=== PATIENT | male | born 1995 | race Hispanic/Latino ===

== ENCOUNTER 2022-06-11 14:02 | Emergency (ER) | payer OTHER ==
[~2022-06-11] VITALS: Ht 177.8 cm; Wt 106.6 kg
[2022-06-11] MEDS ORDERED: KETOROLAC 15MG/ML VIAL (15MG/ML) IM ONE (17:30)
[2022-06-11] MEDS ORDERED: IBUP-2070 PO (18:24)
[2022-06-11 18:45] VITALS: BP 138/72
== END 2022-06-11 18:56 | disposition home or self-care (01) ==
LOC: EDH 14:02
DX: G89.29 Other chronic pain (principal); M25.512 Pain in left shoulder; M54.2 Cervicalgia; M19.90 Unspecified osteoarthritis, unspecified site; Z90.49 Acquired absence of other specified parts of digestive tract
CPT/HCPCS: 99284; 73610; 72040; 96372; J1885

== ENCOUNTER → 2023-04-17 | Emergency (ER) | payer OTHER ==
[~2023-04-17] VITALS: Ht 177.8 cm; Wt 108.0 kg
[~2023-04-17] MED LIST: IBUP-2070 PO; IBUP-2077 PO
[2023-04-17 23:10] VITALS: BP 144/76; PULSE 85; RESP 16
[2023-04-17] MEDS: KETOROLAC 60 MG VIAL (30MG/ML) IM ONE (23:53)
== END ==
LOC: EDH 23:09
DX: M26.69 Other specified disorders of temporomandibular joint (principal); M19.90 Unspecified osteoarthritis, unspecified site; Z90.49 Acquired absence of other specified parts of digestive tract; Z98.890 Other specified postprocedural states
CPT/HCPCS: 99283; 70328; 96372; J1885

== ENCOUNTER 2023-07-30 10:56 | Emergency (ER) | payer OTHER ==
[~2023-07-30] VITALS: Ht 180.3 cm; Wt 99.8 kg
[2023-07-30 10:57] VITALS: BP 130/73; PULSE 56; RESP 20
[2023-07-30] MEDS: SOLU-MEDROL 125MG VIAL IVP ONE (11:24)
[2023-07-30] MEDS: CYCLOBENZAPRINE HCL 10 MG TABLET PO ONE (11:24)
[2023-07-30] MEDS: KETOROLAC 60 MG VIAL (30MG/ML) IM ONE (11:25)
[2023-07-30] MEDS ORDERED: CYCL-309 PO (12:00)
[2023-07-30] MEDS ORDERED: OMEP40CA21 PO (12:00)
[2023-07-30] MEDS ORDERED: METH4TAB3 PO (12:00)
== END 2023-07-30 12:34 | disposition home or self-care (01) ==
LOC: EDH 10:56
DX: G89.29 Other chronic pain (principal); M54.42 Lumbago with sciatica, left side; M19.90 Unspecified osteoarthritis, unspecified site; Z79.899 Other long term (current) drug therapy; Z90.49 Acquired absence of other specified parts of digestive tract; Z98.890 Other specified postprocedural states
CPT/HCPCS: 99284; 96374; 72100; 96372; J2919; J1885

== ENCOUNTER 2024-02-18 10:34 | Emergency (ER) | payer OTHER ==
[~2024-02-18] VITALS: Ht 177.8 cm; Wt 99.8 kg
[~2024-02-18 10:34] MED LIST changes: +CYCL-309 PO; +METH4TAB3 PO; +OMEP40CA21 PO
--- NOTE | 2024-02-18 10:57 | ERN ---
General Chief Complaint: Testicular Injury/Pain Stated Complaint: STI Time Seen by MD: 10:39 Time Seen by Midlevel: 10:39 Source: patient History of Present Illness Initial Comments Patient is a 28-year-old male with no significant past medical history presenting to the emergency department with pain and swelling to the right side of his testicle. Patient states his symptoms started yesterday after having sexual intercourse with his . He was a low concern for sexually transmitted disease at this time. Patient states his is approximately four months and has been checked for STIs. He was last checked for an STI approximately one month ago when he was negative. He denies any other symptoms at this time. Allergies: Coded Allergies: No Known Allergies (Unverified Allergy, Unknown, 06/11/22) Home Meds Active Scripts Doxycycline Monohydrate (Doxycycline Monohydrate) 100 Mg Capsule, 1 CAP PO BID for 10 Days, #20 CAP 0 Refills Prov:RAMON PEDERSON 02/18/24 Omeprazole (Omeprazole) 40 Mg Capsule.dr, 40 MG PO DAILY, #30 CAP Prov:TRISHA JONES NP 07/30/23 Methylprednisolone (Medrol) 4 Mg Tab.ds.pk, 4 MG PO AD, #1 UNIT Prov:TRISHA JONES NP 07/30/23 Cyclobenzaprine HCl (Cyclobenzaprine HCl) 10 Mg Tablet, 10 MG PO TID for 10 Days, #30 TAB Prov:TRISHA JONES NP 07/30/23 Ibuprofen (Ibuprofen 800 mg Tab) 800 Mg Tab, 800 MG PO Q8H PRN for fever or pain, #30 TAB 0 Refills Prov:TRISHA JONES NP 07/30/23 Ibuprofen (Ibuprofen 800 mg Tab) 800 Mg Tab, 800 MG PO Q8H PRN for fever or pain, #30 TAB 0 Refills Prov:TRISHA JONES [employer] 04/17/23 Ibuprofen (Ibuprofen) 600 Mg Tablet, 600 MG PO Q6H PRN for PAIN for 6 Days, #24 Prov:COREY HINKLE [employer] 06/11/22 Past Medical History Past Medical History: Arthritis, Other Medical History Other: CHRONIC NECK, SHOULDER, ANKLE PAIN Past Surgical History: Appendectomy ROS Dictation CONSTITUTIONAL: Negative except for HPI HEAD/FACE: Negative except for HPI EENT: Negative except for HPI RESPIRATORY: Negative except for HPI GASTROINTESTINAL/ABDOMINAL: Negative except for HPI GENITOURINARY: Negative except for HPI MUSCULOSKELETAL: Negative except for HPI INTEGUMENTARY: Negative except for HPI NEUROLOGICAL/PSYCH: Negative except for HPI HEMATOLOGIC/LYMPHATIC: Negative except for HPI All Systems Negative, Except as noted above. 13 point review of systems assessed and all negative except for above. Physical Exam Physical Exam Dictation Vital Signs reviewed General Appearance: Alert, oriented x 3, no acute distress, well developed, nourished. Head and Face: non-traumatic. Eyes: PERRL, pink conjunctivas, eyelid no trauma, anterior chamber with arcus senilis. Ears: Pinnas intact and no signs of trauma or erythema ear canals clear and no discharge TM no erythema Nose: No discharge, no bleeding. Oropharynx: Mouth normal, tongue pink, pharynx clear,no erythema, tonsils no exudates, no abscesses noted, mucous membrane moist Neck: Supple, non-tender, no thyromegaly, no masses, no JVD, no bruits Breast:Deferred Chest:No tenderness, no crepitus, no paradoxical movement, no retractions Lungs:Clear, well-ventilated, symmetric, no rales, no wheezing, no rhonchi, no stridor, good breath sounds bilaterally Heart: Regular rate, regular rhythm, no murmur, no gallops Vascular: no peripheral edema, Abdomen: Soft, positive bowel sounds, nondistended, no guarding, nontender, no rebound, no masses no hepatomegaly, no splenomegaly, no Hernandez's sign, no hernias. Rectal: Deferred Genital: Deferred Neurological: Normal speech, motor function intact, sensory function intact Musculoskeletal: Neck nontender, full range of motion, back nontender, full range of motion, Extremities: nontender, full range of motion Skin: Color pink, dry, no turgor, no rash, no lacerations, no abrasions, no contusions. Lymphatic: Deferred Results Laboratory and Microbiology Lab and Micro Result Laboratory Tests Test 02/18/24 11:01 Urine Color COLORLESS (YELLOW) Urine Appearance CLEAR (CLEAR) Urine pH 7.5 (5.0-8.0) Urine Specific [place] 1.009 (1.001-1.031) Urine Protein NEGATIVE mg/dL (NEGATIVE) Urine Glucose (UA) NEGATIVE mg/dL (NEGATIVE) Urine Ketones NEGATIVE mg/dL (NEGATIVE) Urine Occult Blood NEGATIVE (NEGATIVE) Urine Nitrate NEGATIVE (NEGATIVE) Urine Bilirubin NEGATIVE mg/dL (NEGATIVE) Urine Urobilinogen 0.2 mg/dL (0.2-1.0) Urine Leukocyte Esterase NEGATIVE Migue/uL Labs Reviewed?: Yes MDM MDM: Patient is a 28-year-old male with no significant past medical history presenting to the emergency department with pain and swelling to the right side of his testicle. Patient states his symptoms started yesterday after having sexual intercourse with his . He was a low concern for sexually transmitted disease at this time. Patient states his is approximately four months and has been checked for STIs. He was last checked for an STI approximately one month ago when he was negative. He denies any other symptoms at this time. On physical examination patient is in no acute distress. Vital signs are stable. Patient is afebrile and nontoxic appearing. A scrotal ultrasound was obtained which reveals epididymitis right-sided epididymitis. His urinalysis does not show any evidence of infection. Had a lengthy discussion with the patient regarding possible STI exposure. He reports being monogamous and has a low concern for an STD but would still like to be checked for chlamydia and gonorrhea. Given that patient is under the age of33 he will be given1 g of Rocephin IM and will be discharged home with a prescription for doxycycline. He was advised to refrain from any sexual intercourse until he gets a repeat UA and possibly repeat STI tests. He states he was an appointment with his primary care doctor on February 29, 2024 and will be following up as scheduled. Differential diagnosis: Urinary tract infection, STI, epididymitis, testicular torsion, hydrocele, varicocele There are no social concerns with this patient. Prescription drug management Prescriptions will include: Doxycycline Medical management and examination interpretation discussions were had by me with other qualified healthcare professionals as indicated for the patient's care. ED Course Orders Procedure Category Date Status Time Urinalysis Profile LAB 02/18/24 Complete 10:53 Us Scrotum & Contents US 02/18/24 Resulted 10:53 Ceftriaxone 1g Vial PHA 02/18/24 Complete (Rocephine 1g Inj) 12:00 Chlamydia & Gc Pcr DIRK 02/18/24 Logged 12:01 Current Medications Medications (Trade) Dose Ordered Sig/Walker Route PRN Reason Start Time Stop Time Status Last Admin Dose Admin Ceftriaxone Sodium (ROCEphine 1G INJ) 1 gm ONCE ONCE IM 02/18/24 12:00 02/18/24 12:01 DC Vital Signs Date Time Temp Pulse Resp B/P (MAP) Pulse Ox O2 Delivery O2 Flow Rate FiO2 02/18/24 10:44 97.9 77 16 117/70 100 Room Air 0 DX & DISP Disposition: Discharge Departure Impression: Primary Impression: Right epididymitis Condition: Stable Scripts Doxycycline Monohydrate (Doxycycline Monohydrate) 100 Mg Capsule 1 CAP PO BID for 10 Days, #20 CAP 0 Refills Prov: RAMON PEDERSON 02/18/24 Additional Instructions: Your scrotal ultrasound shows epididymitis of the right testicle. Your urinalysis does not show any evidence of a urinary tract infection. You were given antibiotics in the emergency department. Please follow up with your primary care doctor as scheduled on February 29, 2024. Return to the ER if you develop any new or worsening symptoms. Refrain from any sexual activity until you can see your doctor and have a repeat examination. Referrals: LINDSAY PINEDO (PCP) Time of Disposition: 12:05 I have reviewed the case, and I agree with, Diagnosis and Plan I performed the substantive portion of the visit. I have reviewed and personally made and approve the management plan that is documented in the note by myself or the NATASHA. I acknowledge for responsibility for the patient's management plan. RAMON PEDERSON Feb 18, 2024 10:56
--- NOTE | 2024-02-18 11:35 | HMCIMG ---
US SCROTUM & CONTENTS HISTORY: Right testicular pain COMPARISON: None TECHNIQUE: Duplex scrotal ultrasound study was performed. FINDINGS: The right testes measures 4.2 x 2.2 x 2.8 cm. The left testes measures 4.6 x 2.1 x 2.6 cm. No evidence of intratesticular mass or abnormal calcification is seen. Normal flow is demonstrated in the testes bilaterally and left epididymis. Increased flow is seen in the right epididymis suggestive of right epididymitis. There is right epididymal head cysts measuring 5 x 5 mm. No hydroceles or varicocele is seen. IMPRESSION: 1. Increased flow is seen in the right epididymis suggestive of right epididymitis. There is right epididymal head cysts measuring 5 x 5 mm.
[2024-02-18 11:58] LABS: APPEARANCE,URINE CLEAR (CLEAR); BILIRUBIN,URINE NEGATIVE (NEGATIVE); COLOR,URINE COLORLESS (YELLOW); GLUCOSE, URINE (UA) NEGATIVE (NEGATIVE); KETONES,URINE NEGATIVE (NEGATIVE); LEUKOCYTE ESTERASE ,URINE NEGATIVE Leu/uL (NEGATIVE); NITRATE,URINE NEGATIVE (NEGATIVE); OCCULT BLOOD,URINE NEGATIVE (NEGATIVE); PH,URINE 7.5 (5.0-8.0); PROTEIN,URINE NEGATIVE (NEGATIVE); UROBILINOGEN,URINE 0.2 mg/dL (0.2-1.0)
[2024-02-18] MEDS ORDERED: DOXY100C61 PO (12:01)
[2024-02-18 12:04] LABS: ADD UA MICROSCOPIC NO
[2024-02-18] MEDS: cefTRIAXone 1G VIAL IM ONE (12:15)
[2024-02-18 12:18] VITALS: BP 115/69; PULSE 74; RESP 16; TEMP 97.9; O2SAT 100
== END 2024-02-18 12:21 | disposition home or self-care (01) ==
LOC: EDH 10:34
DX: N45.1 Epididymitis (principal); M19.90 Unspecified osteoarthritis, unspecified site; Z20.2 Contact with and (suspected) exposure to infections with a predominantly sexual mode of transmission; Z79.899 Other long term (current) drug therapy; Z90.49 Acquired absence of other specified parts of digestive tract; Z98.890 Other specified postprocedural states
CPT/HCPCS: 99285; 87491; 87591; 81003; 76870; 96372; J0696

== ENCOUNTER 2024-02-29 09:25 | Emergency (ER) | payer OTHER ==
[~2024-02-29] VITALS: Ht 177.8 cm; Wt 99.8 kg
[~2024-02-29 09:25] MED LIST changes: +DOXY100C61 PO
[2024-02-29 10:14] LABS: RAPID GROUP A STREP negative (NEGATIVE)
[2024-02-29 10:16] LABS: SARS-CoV-2, RNA, NAAT NEGATIVE SARS CoV-2 (NEGATIVE)
[2024-02-29 10:21] LABS: INFLUENZA TYPE A Negative For Type A (NEGATIVE); INFLUENZA TYPE B Negative For Type B (NEGATIVE)
--- NOTE | 2024-02-29 10:31 | ERN ---
ED Note History of Present Illness Stated Complaint: SORE THROAT Chief Complaint: Sore Throat Time Seen by MD: 09:27 Dictation: This generally healthy 28-year-old male developed a sore throat and a little bit of nausea and cough with mostly clear sputum two days ago. He is not aware of fever. There has been no vomiting or diarrhea. He has not had a rash. There are no sick contacts. He just completed a course of doxycycline for epididymitis a few days ago. We had a gonorrhea and chlamydia from that visit which were negative. Patient has no major underlying illnesses. He has had an appendectomy. He does not smoke drink or use recreational drugs. He lives with family Allergies: Coded Allergies: No Known Allergies (Unverified Allergy, Unknown, 06/11/22) Home Meds Active Scripts Doxycycline Monohydrate (Doxycycline Monohydrate) 100 Mg Capsule, 1 CAP PO BID for 10 Days, #20 CAP 0 Refills Prov:RAMON PEDERSON 02/18/24 Omeprazole (Omeprazole) 40 Mg Capsule.dr, 40 MG PO DAILY, #30 CAP Prov:TRISHA JONES NP 07/30/23 Methylprednisolone (Medrol) 4 Mg Tab.ds.pk, 4 MG PO AD, #1 UNIT Prov:TRISHA JONES NP 07/30/23 Cyclobenzaprine HCl (Cyclobenzaprine HCl) 10 Mg Tablet, 10 MG PO TID for 10 Days, #30 TAB Prov:TRISHA JONES ASPARAGUS BUNCHER 07/30/23 Ibuprofen (Ibuprofen 800 mg Tab) 800 Mg Tab, 800 MG PO Q8H PRN for fever or pain, #30 TAB 0 Refills Prov:TRISHA JONES NP 07/30/23 Ibuprofen (Ibuprofen 800 mg Tab) 800 Mg Tab, 800 MG PO Q8H PRN for fever or pain, #30 TAB 0 Refills Prov:TRISHA JONES NP 04/17/23 Ibuprofen (Ibuprofen) 600 Mg Tablet, 600 MG PO Q6H PRN for PAIN for 6 Days, #24 Prov:COREY HINKLE ASPARAGUS BUNCHER 06/11/22 Past Medical History Past Medical History: No Pertinent History Additional Past Medical Hx: CHRONIC NECK, SHOULDER, ANKLE PAIN Surgical History: Appendectomy Review of System Dictation All pertinent systems reviewed, negative except as documented in the HPI The ROS is obtained from patient GENERAL/CONSTITUTIONAL: Negative except as documented in HPI. ENT: Negative except as documented in HPI. CARDIOVASCULAR: Negative except as documented in HPI. RESPIRATORY: Negative except as documented in HPI. GASTROINTESTINAL: Negative except as documented in HPI. GENITOURINARY: Negative except as documented in HPI. MUSCULOSKELETAL: Negative except as documented in HPI. SKIN: Negative except as documented in HPI. NEUROLOGIC: Negative except as documented in HPI. Initial Vital Sign VS Vital Signs Date Time Temp Pulse Resp B/P (MAP) Pulse Ox O2 Delivery O2 Flow Rate FiO2 02/29/24 09:39 97.3 52 16 113/66 98 Room Air 02/29/24 09:41 0 21 Physical Exam Dictation VITAL SIGNS: note is made of triage vital signs CONSTITUTIONAL: This is a comfortable patient who is awake, alert, and appropriately interactive. HEAD: Normocephalic, Atraumatic. EYES: Periorbital areas with no swelling, redness, or edema. Lids and lashes are normal. Conjunctival injection is absent. Sclera anicteric. Pupils equal, round, reactive to light. ENT: No nasal discharge noted. Posterior pharynx is without exudate, redness, swelling, masses, or evidence of obstruction. Uvula midline. Mucous membranes moist. NECK: Trachea midline, no masses palpated, and no cervical lymphadenopathy. No swelling. Supple, full range of motion without nuchal rigidity. No vertebral point tenderness. No meningismus. CHEST/AXILLA: Normal chest wall appearance and motion. No tenderness. No crepitus. CV: Normal rate, regular rhythm. No murmur. No edema. RESPIRATORY:Respiratory rate is normal. Bilateral equal breath sounds with good airflow. Normal breath sounds are noted. No rales, rhonchi or wheezes noted. No increased work of breathing, no retractions. ABDOMEN: Inspection normal. No distention is appreciated. Bowel sounds are normal. No mass or organomegaly is appreciated. There is no tenderness. No rebound. No rigidity. No voluntary or involuntary guarding. BACK: Inspection is normal. No midline tenderness is appreciated. The patient appears comfortable when moving. : No CVA tenderness or bladder tenderness. SKIN: Warm, dry, with normal turgor. Capillary refill less than 3 seconds. Normal color.No rash. No cellulitis or abscess. No evidence of acute injury. MS/Extremity: There is no calf tenderness. Baseline range of motion is noted in all 4 extremities. There are no deformities. NEURO: Awake and alert, lucid. Facies symmetric and speech is clear. Motor strength 5/5 in all extremities. Sensory grossly intact. PSYCH: Patient is appropriately attentive and cooperative without evidence of hallucination. Results (Laboratory/Radiology) Laboratory/Radiology Laboratory Tests Test 02/29/24 09:47 Influenza Type A Antigen Negative For Type A Influenza Type B Antigen Negative For Type B SARS-CoV-2, RNA, NAAT NEGATIVE SARS CoV-2 Group A Streptococcus Rapid negative (NEGATIVE) Labs Reviewed?: Yes ED Course ED Course Orders Procedure Category Date Status Time Covid Rna Naat LAB 02/29/24 Complete 09:45 Influenza Type A & B, LAB 02/29/24 Complete Rapid 09:45 Rapid (Group A Strep) LAB 02/29/24 Complete 09:45 Vital Signs Date Time Temp Pulse Resp B/P (MAP) Pulse Ox O2 Delivery O2 Flow Rate FiO2 02/29/24 09:41 97.3 52 16 113/66 98 Room Air* 0 21 02/29/24 09:39 97.3 52 16 113/66 98 Room Air Medical Decision Making MDM INITIAL IMPRESSION Initial history and physical concerning for very well-appearing young man with a sore throat but normal-appearing tonsils and no cough or respiratory distress on my evaluation Contributing medical problems: None I have reviewed the triage nursing notes and vital signs. The patient is afebrile with acceptable oxygen saturation, heart rate and blood pressure. Initial plan: Influenza COVID and strep swabs DATA REVIEW I have reviewed additional NN, repeat VS, and monitoring where indicated. Heart rate, blood pressure, and O2 saturation are acceptable. [place] diagnostic results: Swabs are negative Other independent historian: none Review of external data: Previous visit for testicular swelling is noted ED COURSE Interventions: None Reassessment: Patient has been stable DISPOSITION Final diagnostic impression: Viral pharyngitis, URI I discussed my findings, clinical impression and treatment recommendations with the patient. I have reviewed the social factors contributing to the patient's presentation and disposition planning. My final plan for disposition was made based upon clinical findings, response to treatment and discussion with the patient regarding management options. Hospitalization is not indicated due to low risk of short term progression, complication, morbidity or mortality related to the current diagnosis At the time of discharge, the vital signs are within acceptable limits. The discharge treatment plan includes general recommendations and symptomatic care. Nony-ept-emtpsar medications are recommended for symptoms at home. Incidental findings discussed: none Questions were invited and answered in layman's terms. I have emphasized my follow-up recommendations and reviewed ED return precaut ions. I have answered any questions in layman's terms. The patient understands that they will have to arrange for out-patient follow-up for recheck of today's condition. The patient is stable and appropriate for discharge from the ED. This dictation was prepared using [employer] voice recognition software. Occasional voice recognition errors may occur. When identified, these errors have been corrected. While every attempt is made to correct errors during dictation, errors may still exist. DX & DISP Disposition: Discharge Decision to Admit Date: Feb 29, 2024 Decision to Admit Time: 10:30 Departure Impression: Primary Impression: Viral pharyngitis Condition: Stable Additional Instructions: Tylenol or ibuprofen as needed for throat pain, [id number] cough and congestion medicines as needed. Read combination drug levels carefully to be sure that you are not double dosing on any ingredient. Increase fluid intake while you are ill. Return or see your doctor if you are worse Referrals: LINDSAY PINEDO (PCP) Time of Disposition: 10:30 ERNIE CAREY MD Feb 29, 2024 10:31
[2024-02-29 11:01] VITALS: BP 112/69; PULSE 59; RESP 16; TEMP 97.3; O2SAT 98
== END 2024-02-29 11:01 | disposition home or self-care (01) ==
LOC: EDH 09:25
DX: J02.8 Acute pharyngitis due to other specified organisms (principal); Z20.822 Contact with and (suspected) exposure to COVID-19; B97.89 Other viral agents as the cause of diseases classified elsewhere; Z90.49 Acquired absence of other specified parts of digestive tract; Z79.899 Other long term (current) drug therapy
CPT/HCPCS: 87635; 87804; 87880; 99283

== ENCOUNTER 2024-03-16 13:36 | Emergency (ER) | payer OTHER ==
[~2024-03-16] VITALS: Ht 177.8 cm; Wt 98.9 kg
[2024-03-16] MEDS ORDERED: prednisoLONE 15 MG/5 ML SOLN PO STA (13:49)
[2024-03-16] MEDS ORDERED: dexaMETHasone SOD PHOSPHATE 4 MG/ML 1ML VIAL IM ONE (14:00)
--- NOTE | 2024-03-16 14:12 | NUR ---
PT ARRIVED FT AT THIS TIME
[2024-03-16 14:25] LABS: SARS-CoV-2, RNA, NAAT NEGATIVE SARS CoV-2 (NEGATIVE)
[2024-03-16 14:29] LABS: INFLUENZA TYPE A Negative For Type A (NEGATIVE)
[2024-03-16 14:34] VITALS: BP 141/82; PULSE 85; RESP 16; TEMP 98.8; O2SAT 98
[2024-03-16 14:37] LABS: BASOPHILS # (AUTO) 0.02 K/uL (0.00-0.20); BASOPHILS % (AUTO) 0.4 % (0.0-5.0); EOSINOPHILS # (AUTO) 0.02 K/uL (0.00-0.70); EOSINOPHILS % (AUTO) 0.4 % (0.0-8.0); HEMATOCRIT 46.4 % (42-54); IMMATURE GRANULOCYTE ABSOLUTE 0.02 K/uL (0-1); LYMPHOCYTES # (AUTO) 0.9 K/uL (1.0-4.8); MEAN CORPUSCULAR HGB CONC 33.4 g/dL (32.0-36.0); MEAN CORPUSCULAR VOLUME 89.9 fL (79-99); MONOCYTES # (AUTO) 0.6 K/uL (0.1-1.0); MONOCYTES % (AUTO) 12.9 % (3.0-13.0); NEUTROPHILS # (AUTO) 3.3 K/uL (1.8-7.7); NEUTROPHILS % (AUTO) 67.9 % (40.0-77.0); PLATELET COUNT (AUTO) 193 K/uL (130-400); RED BLOOD CELL COUNT(AUTO) 5.16 MIL/uL (4.50-6.20); RED CELL DISTRIBUTION WIDTH 12.2 % (11.0-15.5); WHITE BLOOD COUNT (AUTO) 4.9 K/uL (4.8-10.8)
[2024-03-16] MEDS: 0.9%NACL 1000ML 1,000 ML IV ONE (14:40)
[2024-03-16 14:42] LABS: INFLUENZA TYPE B Positive For Type B (NEGATIVE)
[2024-03-16 14:50] LABS: CREATININE 1.1 mg/dL (0.5-1.3); POTASSIUM 3.7 mmol/L (3.5-5.1)
[2024-03-16] MEDS ORDERED: PANT40TA55 PO (14:55)
[2024-03-16] MEDS ORDERED: OSEL75 PO (14:55)
--- NOTE | 2024-03-16 14:55 | ERN ---
General Chief Complaint: Abdominal Pain Stated Complaint: ABDOMINAL PAIN Time Seen by MD: 13:40 Source: patient History of Present Illness Initial Comments Patient is a 28-year-old male coming in to be evaluated for multiple complaints. Patient states that he was a been exposed to the flu by his with tested positive for influenza couple of days ago. He also states he has been having abdominal discomfort but he has had it for a while since he was diagnosed with peptic ulcer disease. No other current complaints. Allergies: Coded Allergies: No Known Allergies (Unverified Allergy, Unknown, 06/11/22) Home Meds Active Scripts Doxycycline Monohydrate (Doxycycline Monohydrate) 100 Mg Capsule, 1 CAP PO BID for 10 Days, #20 CAP 0 Refills Prov:RAMON PEDERSON 02/18/24 Omeprazole (Omeprazole) 40 Mg Capsule.dr, 40 MG PO DAILY, #30 CAP Prov:TRISHA JONES NP 07/30/23 Methylprednisolone (Medrol) 4 Mg Tab.ds.pk, 4 MG PO AD, #1 UNIT Prov:TRISHA JONES NP 07/30/23 Cyclobenzaprine HCl (Cyclobenzaprine HCl) 10 Mg Tablet, 10 MG PO TID for 10 Days, #30 TAB Prov:TRISHA JONES CANOPY INSPECTOR 07/30/23 Ibuprofen (Ibuprofen 800 mg Tab) 800 Mg Tab, 800 MG PO Q8H PRN for fever or pain, #30 TAB 0 Refills Prov:TRISHA JONES NP 07/30/23 Ibuprofen (Ibuprofen 800 mg Tab) 800 Mg Tab, 800 MG PO Q8H PRN for fever or pain, #30 TAB 0 Refills Prov:TRISHA JONES NP 04/17/23 Ibuprofen (Ibuprofen) 600 Mg Tablet, 600 MG PO Q6H PRN for PAIN for 6 Days, #24 Prov:COREY HINKLE CANOPY INSPECTOR 06/11/22 Past Medical History Past Medical History: GERD Medical History Other: CHRONIC NECK, SHOULDER, ANKLE PAIN Past Surgical History: Appendectomy ROS Dictation CONSTITUTIONAL: chills, no fever, no weakness, no diaphoresis, malaise. HEAD/FACE: No signs of trauma. EENT: No eye pain, no blurred vision, no tearing, no double vision, no ear pain, no ear discharge, no nose pain, no nasal congestion, no throat pain, no throat swelling, no mouth pain. RESPIRATORY: No cough, no orthopnea, no SOB, no stridor, no wheezing. CARDIOVASCULAR: No chest pain, no edema, no palpitations, no syncope. GASTROINTESTINAL/ABDOMINAL: No abdominal pain, no constipation, no diarrhea, no nausea, no vomiting. GENITOURINARY: No abnormal discharge, no dysuria, no frequent urination, no hematuria. No complaints of pain in the genitals. MUSCULOSKELETAL: No back pain, no gout, no joint pain, no joint swelling, no muscle pain, no muscle stiffness, no neck pain. INTEGUMENTARY: No change in color, no change in hair/nails, no dryness, no lesion, no lumps, no rash. NEUROLOGICAL/PSYCH: No anxiety, not depressed, no emotional problem, no headache, no numbness, no pre-existing deficit, no history of seizures, no tremors, no weakness. HEMATOLOGIC/LYMPHATIC: Not anemic, no history of blood clots, no apparent bleeding, no bruising, glands not swollen. All Systems Negative, Except as Noted. Physical Exam Physical Exam Dictation VITAL SIGNS: Reviewed. GENERAL APPEARANCE: Alert, oriented x3, no acute distress, obese. HEAD AND FACE: Non-traumatic. EYES: PERRL, pink conjunctivas, eyelid no trauma, anterior chamber clear. EARS: Pinnas intact and no signs of trauma or erythema. Ear canals clear and no discharge. TMs no erythema. NOSE: No discharge, no bleeding. OROPHARYNX: Mouth normal, teeth no caries, tongue pink. Pharynx clear, no erythema. Tonsils no exudates, no abscesses noted. Mucous membrane moist. NECK: Supple, non-tender, no thyromegaly, no masses, no JVD, no bruits. BREAST: Deferred. CHEST: No tenderness, no crepitus, no paradoxical movement, no retractions. LUNGS: Clear, well-ventilated, symmetric, no rales, no wheezing, no rhonchi, no stridor, good breath sounds bilaterally. HEART: Regular rate, regular rhythm, no murmur, no gallops. VASCULAR: No peripheral edema. ABDOMEN: Soft, positive bowel sounds, nondistended, no guarding, nontender, no rebound, no masses no hepatomegaly, no splenomegaly, no Hernandez's sign, no hernias. RECTAL: Deferred. GENITAL: Deferred. NEUROLOGICAL: Normal speech, gross motor function intact, gross sensory function intact. MUSCULOSKELETAL: Neck nontender, full range of motion, back nontender, full range of motion. EXTREMITIES: Nontender, full range of motion. SKIN: Color pink, dry, no turgor, no rash, no lacerations, no abrasions, no contusions. LYMPHATICS: Deferred. Results Laboratory and Microbiology Lab and Micro Result Laboratory Tests Test 03/16/24 13:42 03/16/24 14:20 Influenza Type A Antigen Negative For Type A Influenza Type B Antigen Positive For Type B SARS-CoV-2, RNA, NAAT NEGATIVE SARS CoV-2 White Blood Count 4.9 K/uL (4.8-10.8) Red Blood Count 5.16 MIL/uL (4.50-6.20) Hemoglobin 15.5 g/dL (14.0-18.0) Hematocrit 46.4 % (42-54) Mean Corpuscular Volume 89.9 fL (79-99) Mean Corpuscular Hemoglobin 30.0 pg (27.0-33.0) Mean Corpuscular Hemoglobin Concent 33.4 g/dL (32.0-36.0) Red Cell Distribution Width 12.2 % (11.0-15.5) Platelet Count 193 K/uL (130-400) Mean Platelet Volume 10.5 fL (7.5-10.5) Immature Granulocyte % (Auto) 0.4 % (0-1) Neutrophils (%) (Auto) 67.9 % (40.0-77.0) Lymphocytes (%) (Auto) 18.0 % (21.0-51.0) L Monocytes (%) (Auto) 12.9 % (3.0-13.0) Eosinophils (%) (Auto) 0.4 % (0.0-8.0) Basophils (%) (Auto) 0.4 % (0.0-5.0) Neutrophils # (Auto) 3.3 K/uL (1.8-7.7) Lymphocytes # (Auto) 0.9 K/uL (1.0-4.8) L Monocytes # (Auto) 0.6 K/uL (0.1-1.0) Eosinophils # (Auto) 0.02 K/uL (0.00-0.70) Basophils # (Auto) 0.02 K/uL (0.00-0.20) Absolute Immature Granulocyte (auto 0.02 K/uL (0-1) Nucleated Red Blood Cells 0.0 % (0.0-0.19) Sodium Level 142 mmol/L (136-145) Potassium Level 3.7 mmol/L (3.5-5.1) Chloride Level 100 mmol/L (101-111) L Carbon Dioxide Level 31 mmol/L (21-32) Blood Urea Nitrogen 9 mg/dL (7-18) Creatinine 1.1 mg/dL (0.5-1.3) Glomerular Filtration Rate Calc 93 mL/min (>90) Random Glucose 132 mg/dL (70-105) H Total Calcium 9.4 mg/dL (8.5-10.1) Labs Reviewed?: Yes MDM MDM: Differential diagnosis: Influenza, gastritis, Patient is a 28-year-old male coming in to be evaluated for URI symptoms. Patient was concerned because he was exposed to influenza by . Patient did test positive here along with the URI symptoms patient has been having abdominal discomfort chronically. Patient will be discharged with a diagnosis of influenza B and chronic gastritis. ED Course Orders Procedure Category Date Status Time Prednisolone 15mg/5ml PHA 03/16/24 Complete Soln (Orapred 15mg 13:49 Dexamethasone 4mg/Ml PHA 03/16/24 Complete 1ml Vial (Dexametha 14:00 Cbc With Differential LAB 03/16/24 Complete 13:57 Basic Metabolic Panel LAB 03/16/24 Complete 13:57 Covid Rna Naat LAB 03/16/24 Complete 13:57 Influenza Type A & B, LAB 03/16/24 Complete Rapid 13:57 0.9%Nacl 1000ml (Ns PHA 03/16/24 Complete 1000ml) 14:00 Current Medications Medications (Trade) Dose Ordered Sig/Walker Route PRN Reason Start Time Stop Time Status Last Admin Dose Admin Dexamethasone Sodium Phosphate (dexaMETHasone 4MG/ML 1ML VIAL) 4 mg ONCE ONCE IM 03/16/24 14:00 03/16/24 13:52 DC Prednisolone Sodium Phosphate (oraPRED 15MG/ 5ML SOLN) 15 mg ONCE STAT PO 03/16/24 13:49 03/16/24 13:52 DC Sodium Chloride 1,000 ml @ 0 mls/hr ONCE ONCE IV 03/16/24 14:00 03/16/24 14:01 DC 03/16/24 14:40 Vital Signs Date Time Temp Pulse Resp B/P (MAP) Pulse Ox O2 Delivery O2 Flow Rate FiO2 03/16/24 14:34 98.8 85 16 141/82 98 Room Air* 0 21 03/16/24 13:37 99.9 87 16 141/82 99 Room Air 0 DX & DISP Disposition: Discharge Departure Impression: Primary Impression: Chronic gastritis Additional Impression: Influenza B Condition: Stable Scripts Pantoprazole Sodium (Protonix) 40 Mg Ectab 1 TAB PO DAILY for 30 Days, #30 TAB 0 Refills Prov: QUANG MARTINEZ MD 03/16/24 Oseltamivir Phosphate (Tamiflu) 75 Mg Cap 1 CAP PO BID for 5 Days, #10 CAP 0 Refills Prov: QUANG MARTINEZ MD 03/16/24 Additional Instructions: FOLLOW-UP WITH PRIMARY CARE PROVIDER IN 1 TO 2 DAYS. TAKE MEDICATIONS DIRECTED HERE IN THE EMERGENCY ROOM. OKAY TO CONTINUE HOME MEDICATIONS UNLESS OTHERWISE DISCUSSED DURING YOUR VISIT IN THE EMERGENCY ROOM TODAY. RETURN TO YOUR NEAREST EMERGENCY ROOM IF SYMPTOMS WORSEN OR IF THERE IS NO IMPROVEMENT. CALL 911 IF YOU NEED IMMEDIATE ASSISTANCE. TAKE TYLENOL [id number] NEEDED AND IF NO CONTRAINDICATIONS ARE PRESENT. INCREASE ORAL HYDRATION. A WOUND CULTURE OR URINE CULTURE WAS ORDERED HERE IN THE EMERGENCY ROOM DEPARTMENT PLEASE FOLLOW-UP WITH PRIMARY CARE PROVIDER AND ADVISE THEM TO GET REPEAT PORTS FROM OUR FACILITY. IF YOU HAD ANY RUDDY WRAP/SPLINTS THAT WERE APPLIED HERE, PLEASE DO NOT REMOVE THEM UNTIL YOU SEE YOUR PRIMARY CARE OR SPECIALTY. Referrals: Referrals: LINDSAY PINEDO (PCP) Time of Disposition: 14:54 QUANG MARTINEZ MD Mar 16, 2024 14:55
== END 2024-03-16 15:14 | disposition home or self-care (01) ==
LOC: EDH 13:36
DX: K29.50 Unspecified chronic gastritis without bleeding (principal); J10.1 Influenza due to other identified influenza virus with other respiratory manifestations; K21.9 Gastro-esophageal reflux disease without esophagitis; Z79.899 Other long term (current) drug therapy; Z90.49 Acquired absence of other specified parts of digestive tract; Z20.822 Contact with and (suspected) exposure to COVID-19
CPT/HCPCS: 99283; 87635; 80048; 85025; 87804 ×2; 36415; J7030